=== PATIENT | male | born 1960 | race Caucasian/White ===

== ENCOUNTER 2021-02-21 12:36 | Emergency (ER) | payer OTHER, SELFPAY ==
--- NOTE | 2021-02-21 13:16 | W.ED.SKABFB ---
HPI - Skin/Abscess/Foreign Bdy General: Chief complaint: Wound/Laceration Stated complaint: URE Lac Time Seen by Provider: 02/21/21 13:15 History of Present Illness: HPI narrative: Patient is a 60-year-old male comes to the ED with a laceration to right forearm. Patient said injury occurred just prior to arrival. 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 The ring cutter lathe operator slipped and grazed patient's right forearm causing laceration. Patient says the ring cutter lathe operator blade was hot and he thinks that limited any bleeding. Patient says after he had the cut he immediately rinsed it out with water. He has full range of motion in wrist and hand but does feel little bit of pain in his forearm during movement. Patient says he is up-to-date on his tetanus. Associated symptoms: Deny chills, fever(s), nausea or vomiting Review of Systems Const: Denies: fever(s), chills or fatigue Eyes: Denies: change in vision or eye discomfort ENMT: Denies: throat pain, odynophagia, nasal discharge or nasal congestion Card: Denies: chest pain, palpitations, edema, swelling of feet/ankles, dyspnea on exertion or orthopnea Resp: Denies: dyspnea, productive cough or non-productive cough GI: Denies: abdominal pain, nausea, vomiting, diarrhea, constipation or hematochezia : Denies: flank pain, difficulty urinating, dysuria or hematuria Musc: Denies: neck pain, back pain or extremity swelling Skin/Breast: Reports: new lesions (laceration to right forearm); Denies: rash Neuro: Denies: headache(s), numbness in extremities or weakness in extremities Physical Exam Const: COMMON NORMALS: no acute distress, patient oriented x3 and alert GENERAL APPEARANCE: cooperative and comfortable HENMT: COMMON NORMALS: normocephalic HEAD & SCALP: normocephalic MOUTH: Normal oral and palatal mucosa present THROAT: posterior oropharynx normal and uvula midline Neck/C-Spine: COMMON NORMALS: supple GENERAL: Yes normal visual inspection Resp: COMMON NORMALS: normal respiratory effort, No retractions, No use of accessory muscles and clear to auscultation bilaterally AUSCULTATION: clear to auscultation bilaterally Cardio: COMMON NORMALS: regular rate, regular rhythm, S1 normal heart sound present, S2 normal heart sound present, No gallops present (Cardio), No clicks present (Cardio), No murmurs present (Cardio) and Peripheral pulses 2+ throughout RATE: regular rate RHYTHM: regular rhythm HEART SOUNDS: S1 normal heart sound present and S2 normal heart sound present PERIPHERAL PULSES: Peripheral pulses 2+ throughout GI: COMMON NORMALS: Normal to inspection, nondistended, normoactive bowel sounds present, Soft to palpation, non-tender and no masses PALPATION: Yes Soft to palpation : COMMON NORMALS: Yes no CVA tenderness BLADDER/KIDNEY EXAM: Yes no CVA tenderness Back/Pelvis: COMMON NORMALS: no CVA tenderness Extremity: NARRATIVE EXTREMITY EXAM: Right forearm?2 cm linear laceration that is superficial. Minimal bleeding. Full range of motion in hand and wrist. Radial pulse 2+. GENERAL: Yes normal exam except as noted Neuro: COMMON NORMALS: patient oriented x3 and moves all extremities SENSORIUM/ORIENTATION: Yes alert Skin: NARRATIVE SKIN EXAM: Right forearm?2 cm linear laceration that is superficial. Minimal bleeding. Procedures Laceration Laceration 1: Site: upper extremity (right forearm) Side (If applicable): right Size (cm): 2 Description: linear and clean Depth: simple, single layer Local Anesthetic: lidocaine 1% and with epi Amount of anesthesia used (mL): 10 Pre-repair: wound explored (No foreign body or contaminants seen) and irrigated extensively (With normal saline and skin was cleaned with iodine swab.) Skin layer closed with: nylon Size (cm): 4-0 Number of sutures: 7 Technique: simple, interrupted Course Vital Signs: Vital signs: Vital Signs Temperature 97.8 F 02/21/21 13:32 Pulse Rate 72 02/21/21 13:32 Respiratory Rate 20 H 02/21/21 13:32 Blood Pressure 117/69 02/21/21 13:32 Pulse Oximetry 93 02/21/21 13:32 MDM - Skin/Abscess/Foreign Bdy MDM Narrative: Medical decision making narrative: Patient is a 60-year-old male comes to the ED with a laceration to right forearm. Laceration was irrigated extensively with normal saline and cleaned with iodine swab. Patient has full range of motion in the hand and wrist and neurovascular tact distally. Wound was explored no contaminants or foreign bodies were found. Lidocaine 1% with epi was used as local and 7 sutures were placed to close laceration. Patient discharged home given laceration care instructions. He was told to have sutures removed in 7 to 10 days medical provider office. Return to ED precautions given. Patient was discharged home with a prophylactic dose of cephalexin. Patient understood agree with plan. Discharge Plan Discharge Patient Disposition: Home Clinical Impression: Forearm laceration Qualifiers: Encounter type: initial encounter Laterality: right Qualified Code(s): S51.811A - Laceration without foreign body of right forearm, initial encounter Condition: Stable Prescriptions: New cephalexin 500 mg capsule 500 mg PO Q6H 3 Days Qty: 12 RF: 0 Discharge Orders: Discharge ED (Routine); Ordered 02/21/21 Ordered By: Janes Flores Referrals: Maria Elena Gutierrez MD [Primary Care Provider] - Discharge Diet: Regular Discharge Activity: Limit activity as instructed Patient Instructions: Suture Care (ED), Laceration (ED) Activity Restrictions/Additional Instructions: Take full course of antibiotics as prescribed. Keep laceration site clean and dry for the next 48 hours. Then after that you can clean and re-bandage daily. Watch for signs of infection such as redness, warmth, increased tenderness and puslike drainage. If you see the signs of infection return to the ED, urgent care or PCP for reevaluation. call your PCP to schedule a follow-up appointment for reevaluation and suture removal in about 7-10 days. Continue taking all home meds. Follow discharge plans as discussed. You can return to the ED if symptoms worsen. Coding Level of Care Code ED Watch Repair Technician for Minerva Burris Exam Comprehensive
[2021-02-21 13:22] VITALS: BP 117/69; PULSE 72; RESP 20; TEMP 36.6; O2SAT 93; BMI 21.4
[2021-02-21 13:32] VITALS: BP 117/69; PULSE 72; RESP 20; TEMP 36.6; O2SAT 93
== END 2021-02-21 14:04 | disposition home or self-care (01) ==
PROVIDERS: Emergency Provider Physician Assistant; PCP Family Medicine
DX: S51.811A Laceration without foreign body of right forearm, initial encounter (principal); W27.0XXA Contact with workbench tool, initial encounter
CPT/HCPCS: 12001; 99282

== ENCOUNTER 2022-02-21 09:24 | Outpatient (CLI) | payer OTHER, SELFPAY ==
--- NOTE | 2022-02-21 13:03 | PFTS_ITS ---
Date of Study:02/21/22 Date of Dictation: MECHANICS: Forced vital capacity (FVC) is normal. Forced expiratory volume in one second (FEV1) is reduced. FEV1/FVC is reduced. FLOW VOLUME LOOP: Reduced flow at all lung volumes with significant scooping. LUNG VOLUMES: Total lung capacity (TLC) is normal. Residual volume (RV) is increased. DIFFUSING CAPACITY FOR CARBON MONOXIDE: Mildly reduced. INTERPRETATION: The postbronchodilator spirometry is consistent with moderate airflow obstruction. There is no significant postbronchodilator response. Lung volumes are consistent with air trapping. Gas exchange (DLCO) is mildly reduced. MTDD
== END 2022-02-21 09:25 | disposition home or self-care (01) ==
LOC: RT 09:25
PROVIDERS: PCP Family Medicine; Visit Provider Family Medicine
DX: J44.9 Chronic obstructive pulmonary disease, unspecified (principal)
CPT/HCPCS: 94060; 94726; 94729; J7614

== ENCOUNTER 2025-04-11 14:59 | Outpatient (CLI) | payer OTHER, SELFPAY ==
--- NOTE | 2025-04-11 15:05 | CT_ITS ---
WS: [id number] LDCT LUNG CANCER SCREENING TECHNIQUE: Noncontrast CT of the chest with coronal and sagittal reformatted images. CLINICAL INFORMATION: FOLLOW UP ABNORMAL STUDY COMPARISON: Outside CT 2021 DLP: 49.58 mGy.cm DIvol: Mean CTDIvol: 0.70 (mGy) All CT scans at [facility] use at least one of these dose optimization techniques: automated exposure control; mA and/or kV adjustment per patient size (includes targeted exams where dose is matched to clinical indication); or iterative reconstruction. FINDINGS: Large bulla LEFT lung apex measuring 8.1 x 7.1 x 7.2 cm. Advanced emphysematous changes. 4 mm noncalcified nodule RIGHT middle lobe stable compared to previous. Stable focus of pleural-parenchymal scarring in the LEFT upper lobe posteriorly measuring 7 mm. This appears partially calcified. Stable pleural-parenchymal scarring in the lingula. Subsegmental atelectasis LEFT lower lobe. Pleural nodule RIGHT upper lobe anterior medially measuring 3 mm No new suspicious pulmonary parenchymal abnormalities. A few tiny scattered micronodules. Aortic calcification. Coronary calcification. Calcified parabronchial and hilar lymph nodes. CT/CT lung screening [id number] IMPRESSION: LUNG-RADS: 2-Benign Appearance or Behavior FOLLOW UP: 12 Month: Continue annual screening with LDCT
== END 2025-04-11 15:00 | disposition home or self-care (01) ==
PROVIDERS: PCP Family Medicine; Visit Provider Nurse Practitioner Family
DX: Z12.2 Encounter for screening for malignant neoplasm of respiratory organs (principal); Z87.891 Personal history of nicotine dependence; J43.8 Other emphysema; J98.11 Atelectasis; J98.4 Other disorders of lung; R91.8 Other nonspecific abnormal finding of lung field; I70.0 Atherosclerosis of aorta; I25.10 Atherosclerotic heart disease of native coronary artery without angina pectoris
CPT/HCPCS: 71271